=== PATIENT | male | born 1970 | race Caucasian/White ===

== ENCOUNTER 2023-06-19 23:59 | Emergency (ER) | payer OTHER | END 2023-06-20 01:06 | disposition left against medical advice (07) | LOC: SED 23:59 | DX: S41.111D Laceration without foreign body of right upper arm, subsequent encounter (principal); Z53.21 Procedure and treatment not carried out due to patient leaving prior to being seen by health care provider; X58.XXXD Exposure to other specified factors, subsequent encounter ==